=== PATIENT | male | born 1955 | race Caucasian/White ===

== ENCOUNTER 2018-02-28 17:25 | Emergency (ER) | payer MEDICARE ==
[~2018-02-28] VITALS: Ht 180.3 cm; Wt 75.0 kg
[~2018-02-28 17:25] MED LIST: ALPR0.257 PO; AMLO2.5T2 PO; BUPR100T5 PO; CITA-278 PO; FOLI1TAB16 PO
[2018-02-28 17:49] VITALS: BP 164/93
--- NOTE | 2018-02-28 18:01 | NUR ---
Pt. seen, evaluated and discharged by provider without nursing intervention.
== END 2018-02-28 18:03 ==
LOC: ER 17:25
DX: F10.129 Alcohol abuse with intoxication, unspecified (principal); C18.9 Malignant neoplasm of colon, unspecified; Z02.89 Encounter for other administrative examinations; Z88.5 Allergy status to narcotic agent; Z79.899 Other long term (current) drug therapy; Y90.9 Presence of alcohol in blood, level not specified
CPT/HCPCS: 99283